=== PATIENT | male | born 1990 | race African-American/Black ===

== ENCOUNTER 2020-11-16 04:41 | Inpatient (IN) ==
[2020-11-16] MEDS ORDERED: ONDANSETRON 4 MG/2 ML VIAL ONE (04:56)
[2020-11-16] MEDS ORDERED: ONDANSETRON 4 MG/2 ML VIAL IV ONE (04:56)
[2020-11-16 05:01] LABS: Basophils # 0.1 10*3/uL (0.0-0.2); Basophils % 0.6 % (0.0-0.8); Eosinophils # 0.1 10*3/uL (0.0-0.87); Eosinophils % 1.2 % (0.00-10.9); Hematocrit 43.8 VOL% (42.0-52.0); Immature Granulocytes % 1.2 %; Immature Granulocytes Absolute 0.14 #; Lymphocytes # 4.4 10*3/uL (1.4-4.0); Lymphocytes % 36.4 % (21.2-54.2); Mean Corpuscular Volume 90.7 FL (87-102); Mean Platelet Volume 9.5 FL (9.6-12.0); Monocytes % 3.5 % (1.7-12.7); Neutrophils % 57.1 % (38.7-73.9); Platelet Count 329 T/CUMM (130-400); Red Blood Count 4.83 MC/CUMM (3.8-5.5); Red Cell Distribution Width 13.9 % (9.3-17.3); White Blood Count 12.2 T/CUMM (4-12)
[2020-11-16 05:18] LABS: Platelet Estimate Adequate
[2020-11-16 05:18] LABS: Alanine Aminotransferase 35 U/L (16-61); Albumin 3.8 G/DL (3.4-5.0); Alkaline Phosphatase 86 U/L (45-117); Amylase 63 U/L (25-115); Aspartate Amino Transferase 47 U/L (0-37); Bilirubin,Total < 0.39 MG/DL (0.2-1.0); Blood Urea Nitrogen 10 MG/DL (7-18); Calcium 7.6 MG/DL (8.5-10.1); Carbon Dioxide 26 MMOL/L (21-32); Estimated Glom Filtration Rate 90 ML/MIN; Glucose 103 MG/DL (74-106); Osmolality,Calculated 279.3 MOS/KG (273-304); Potassium 2.8 MMOL/L (3.5-5.1); Sodium 141 MMOL/L (136-145); Total Protein 7.3 G/DL (6.4-8.2)
[2020-11-16] MEDS ORDERED: TISSUE ADHESIVE 1 EACH APPLICATOR TOP ONE ×2 (05:36)
[2020-11-16] MEDS ORDERED: MORPHINE 4 MG/1 ML VIAL ONE (05:42)
[2020-11-16] MEDS ORDERED: MORPHINE 4 MG/1 ML VIAL IV STA (05:43)
[2020-11-16] MEDS ORDERED: ONDANSETRON 4 MG/2 ML VIAL IV STA (05:43)
[2020-11-16] MEDS ORDERED: LIDOCAINE 1%/EPI INJ 20 ML VIAL ONE (05:55)
[2020-11-16] MEDS ORDERED: ONDANSETRON 4 MG/2 ML VIAL IV PRN (06:07)
[2020-11-16] MEDS: LACTATED RINGERS 1,000 ML IV SCH ×2 (06:45→16:13)
[2020-11-16 07:35] LABS: INR 1.8; PT Patient Result 18.8 SECS (10.5-12.0)
[2020-11-16] MEDS: HYDROmorphone 2 MG/1 ML VIAL IV PRN ×3 (08:35→16:56)
[2020-11-16] MEDS: POTASSIUM CHLORIDE RIDER 10 MEQ in PREMIX 1 EACH IV PRN ×5 (10:00→14:04)
[2020-11-16] MEDS: MORPHINE 4 MG/1 ML VIAL IV PRN ×2 (20:57→23:20)
[2020-11-17] LABS: Bilirubin,Urine Negative (Negative); Blood, Urine Small mg/dL (Negative); Glucose,Urine (UA) Negative (Negative); Ketones,Urine 5 mg/dL (Negative); Mucus,Urine Occasional /LPF (Occasional); Nitrite,Urine Negative (Negative); Protein,Urine 30 MG/DL; Squamous Epithelial Cell,Urine Occasional /HPF (0-10); Urine Appearance CLEAR (Clear); Urine Color Yellow (Yellow); Urine Specific Gravity 1.024 (1.001-1.035); Urine Urobilinogen < 2.0 EU/DL (0.2-1.0)
[2020-11-17 00:05] LABS: Barbiturates Screen,Urine Negative (Negative); Benzodiazepines Screen,Urine Negative (Negative); Cannabinoid Screen,Urine Negative (Negative); Opiate Screen,Urine Positive (Negative); Phencyclidine Screen,Urine Negative (Negative)
[2020-11-17] MEDS: LACTATED RINGERS 1,000 ML IV SCH ×5 (00:19→21:52)
[2020-11-17] MEDS: MORPHINE 4 MG/1 ML VIAL IV PRN (03:30)
[2020-11-17] MEDS ORDERED: NALOXONE 0.4 MG/ML VIAL IV PRN (03:45)
[2020-11-17] MEDS ORDERED: HYDROmorphone PCA 30 MG/30 ML SYRINGE IV SCH (04:00)
[2020-11-17 04:14] LABS: ABG Base Excess 2.3 MMOL/L (-2.5-2.5); ABG HCO3 28.6 MMOL/L (20-26); ABG Oxygen Saturation 98.4 % (95-100); ABG PCO2 50.9 MM HG (35-48); ABG PH 7.367 (7.35-7.45); ABG PO2 118.6 MM HG (80-95); ABG TCO2 30.1 MMOL/L (23-27)
[2020-11-17 05:56] LABS: Basophils % 0.4 % (0.0-0.8); Eosinophils % 0.5 % (0.00-10.9); Hematocrit 40.8 VOL% (42.0-52.0); Immature Granulocytes % 0.4 %; Immature Granulocytes Absolute 0.03 #; Lymphocytes # 1.1 10*3/uL (1.4-4.0); Lymphocytes % 13.6 % (21.2-54.2); Mean Corpuscular HGB Conc 31.9 GM/DL (32-36); Mean Corpuscular Volume 91.9 FL (87-102); Mean Platelet Volume 9.9 FL (9.6-12.0); Monocytes % 4.9 % (1.7-12.7); Neutrophils % 80.2 % (38.7-73.9); Platelet Count 256 T/CUMM (130-400); Red Blood Count 4.44 MC/CUMM (3.8-5.5); Red Cell Distribution Width 14.3 % (9.3-17.3); White Blood Count 8.4 T/CUMM (4-12)
[2020-11-17 06:15] LABS: Calcium 8.9 MG/DL (8.5-10.1); Osmolality,Calculated 272.8 MOS/KG (273-304); Potassium 4.2 MMOL/L (3.5-5.1)
[2020-11-17] MEDS ORDERED: ALBUTEROL/IPRATROPIUM 3 ML NEB RESP TX PRN (08:49)
[2020-11-17 11:21] LABS: INR 0.9; PT Patient Result 10.5 SECS (10.5-12.0); Partial Thromboplastin Time 30.5 SECS (23.9-33.8)
[2020-11-17] MEDS ORDERED: LORazepam 2 MG/1 ML VIAL IV PRN (13:18)
[2020-11-17] MEDS ORDERED: LACTATED RINGERS 1,000 ML IV ONE (13:21)
[2020-11-17] MEDS ORDERED: SODIUM CHLORIDE 0.9% EPIDURAL SCH (14:30)
[2020-11-17] MEDS ORDERED: ROPIVACAINE 0.5% EPIDURAL SCH (14:30)
[2020-11-17] MEDS ORDERED: FENTANYL EPIDURAL SCH (14:30)
[2020-11-17] MEDS: HYDROmorphone PCA 30 MG/30 ML SYRINGE IV SCH (15:54)
[2020-11-17] MEDS: THIAMINE INJ 100 MG, FOLIC ACID INJ 1 MG, MULTIVITAMIN INJ 10 ML in SODIUM CHLORIDE 0.9... IV SCH (16:20)
[2020-11-17] MEDS: ALBUTEROL/IPRATROPIUM 3 ML NEB RESP TX SCH (20:02)
[2020-11-18] MEDS: ALBUTEROL/IPRATROPIUM 3 ML NEB RESP TX SCH ×4 (00:20→19:24)
[2020-11-18] MEDS: LACTATED RINGERS 1,000 ML IV SCH ×2 (06:10→19:45)
[2020-11-18] MEDS ORDERED: LACTATED RINGERS 1,000 ML IV ONE (07:12)
[2020-11-18 07:53] LABS: ABG Base Excess 5.7 MMOL/L (-2.5-2.5); ABG HCO3 29.5 MMOL/L (20-26); ABG PCO2 60.6 MM HG (35-48); ABG PH 7.347 (7.35-7.45); ABG PO2 75.4 MM HG (80-95); ABG TCO2 29.8 MMOL/L (23-27); Allen Test Positive
[2020-11-18 10:25] LABS: ABG Base Excess 7.4 MMOL/L (-2.5-2.5); ABG HCO3 31.1 MMOL/L (20-26); ABG Oxygen Saturation 95.3 % (95-100); ABG PCO2 56.1 MM HG (35-48); ABG PH 7.392 (7.35-7.45); ABG PO2 73.6 MM HG (80-95); ABG TCO2 30.2 MMOL/L (23-27); Allen Test Positive
[2020-11-18] MEDS: ROPIVACAINE 0.2% 100 ML EPIDURAL SCH ×3 (11:21→21:13)
[2020-11-18] MEDS: THIAMINE INJ 100 MG, FOLIC ACID INJ 1 MG, MULTIVITAMIN INJ 10 ML in SODIUM CHLORIDE 0.9... IV SCH ×2 (13:04→13:53)
[2020-11-18] MEDS ORDERED: FUROSEMIDE 40 MG/4 ML VIAL IV ONE (14:29)
[2020-11-18] MEDS: HYDROmorphone PCA 30 MG/30 ML SYRINGE IV SCH (18:42)
[2020-11-19] MEDS: ALBUTEROL/IPRATROPIUM 3 ML NEB RESP TX SCH ×4 (00:23→20:03)
[2020-11-19 04:41] LABS: ABG Base Excess 6.6 MMOL/L (-2.5-2.5); ABG HCO3 31.9 MMOL/L (20-26); ABG Oxygen Saturation 95.9 % (95-100); ABG PCO2 48.9 MM HG (35-48); ABG PH 7.433 (7.35-7.45); ABG PO2 80.5 MM HG (80-95); ABG TCO2 33.4 MMOL/L (23-27)
[2020-11-19 04:42] LABS: Allen Test Positive
[2020-11-19] MEDS: ROPIVACAINE 0.2% 100 ML EPIDURAL SCH (07:18)
[2020-11-19] MEDS ORDERED: POLYETHYLENE GLYCOL POWDER 17 GM PACK PO PRN (07:51)
[2020-11-19] MEDS: DOCUSATE SODIUM 100 MG CAPSULE PO SCH ×2 (09:45→21:42)
[2020-11-19] MEDS: THIAMINE INJ 100 MG, FOLIC ACID INJ 1 MG, MULTIVITAMIN INJ 10 ML in SODIUM CHLORIDE 0.9... IV SCH (18:08)
[2020-11-19] MEDS: HYDROmorphone PCA 30 MG/30 ML SYRINGE IV SCH (18:08)
[2020-11-19] MEDS: LACTATED RINGERS 1,000 ML IV SCH (18:09)
[2020-11-20] MEDS: ALBUTEROL/IPRATROPIUM 3 ML NEB RESP TX SCH ×4 (02:01→19:42)
[2020-11-20 03:59] LABS: ABG Base Excess 3.8 MMOL/L (-2.5-2.5); ABG HCO3 29.1 MMOL/L (20-26); ABG Oxygen Saturation 97.6 % (95-100); ABG PCO2 46.9 MM HG (35-48); ABG PH 7.411 (7.35-7.45); ABG PO2 97.1 MM HG (80-95); ABG TCO2 30.6 MMOL/L (23-27); Allen Test Positive
[2020-11-20] MEDS: DOCUSATE SODIUM 100 MG CAPSULE PO SCH ×2 (10:37→20:45)
[2020-11-20] MEDS: HYDROmorphone PCA 30 MG/30 ML SYRINGE IV SCH ×3 (11:51→16:16)
[2020-11-20] MEDS ORDERED: BUPIVACAINE 0.5% 50 ML VIAL MISC INJ ONE ×2 (16:21→17:00)
[2020-11-20] MEDS ORDERED: TRIAMCINOLONE ACETONIDE 40 MG/1 ML VIAL IM ONE (17:30)
[2020-11-20] MEDS: GABAPENTIN 300 MG CAPSULE PO SCH (20:45)
[2020-11-21] MEDS: ALBUTEROL/IPRATROPIUM 3 ML NEB RESP TX SCH ×4 (00:58→19:48)
[2020-11-21 04:33] LABS: ABG Base Excess 3.5 MMOL/L (-2.5-2.5); ABG HCO3 27.4 MMOL/L (20-26); ABG Oxygen Saturation 91.7 % (95-100); ABG PCO2 40.9 MM HG (35-48); ABG PH 7.442 (7.35-7.45); ABG PO2 62.9 MM HG (80-95); ABG TCO2 24.1 MMOL/L (23-27); Allen Test Positive; Pt O2 Delivery Device Room Air
[2020-11-21] MEDS: GABAPENTIN 300 MG CAPSULE PO SCH ×3 (10:03→22:06)
[2020-11-21] MEDS: DOCUSATE SODIUM 100 MG CAPSULE PO SCH ×2 (10:03→22:06)
[2020-11-21] MEDS: LIDOCAINE 5% PATCH TRANSDERM SCH (10:05)
[2020-11-22] MEDS: ALBUTEROL/IPRATROPIUM 3 ML NEB RESP TX SCH ×4 (00:29→19:50)
[2020-11-22] MEDS: LIDOCAINE 5% PATCH TRANSDERM SCH (09:06)
[2020-11-22] MEDS: DOCUSATE SODIUM 100 MG CAPSULE PO SCH ×2 (09:06→21:07)
[2020-11-22] MEDS: GABAPENTIN 300 MG CAPSULE PO SCH ×3 (09:06→21:07)
[2020-11-22] MEDS: HYDROmorphone PCA 30 MG/30 ML SYRINGE IV SCH (09:10)
[2020-11-23] MEDS: ALBUTEROL/IPRATROPIUM 3 ML NEB RESP TX SCH ×4 (00:34→19:05)
[2020-11-23] MEDS: DOCUSATE SODIUM 100 MG CAPSULE PO SCH ×2 (09:19→20:36)
[2020-11-23] MEDS: GABAPENTIN 300 MG CAPSULE PO SCH ×3 (09:19→20:36)
[2020-11-23] MEDS: LIDOCAINE 5% PATCH TRANSDERM SCH (09:20)
[2020-11-23] MEDS: HYDROmorphone PCA 30 MG/30 ML SYRINGE IV SCH (12:34)
[2020-11-24] MEDS: ALBUTEROL/IPRATROPIUM 3 ML NEB RESP TX SCH ×2 (00:17→08:10)
[2020-11-24] MEDS: DOCUSATE SODIUM 100 MG CAPSULE PO SCH (08:31)
[2020-11-24] MEDS: GABAPENTIN 300 MG CAPSULE PO SCH ×2 (08:31→15:21)
[2020-11-24] MEDS: LIDOCAINE 5% PATCH TRANSDERM SCH (08:34)
[2020-11-24] MEDS: HYDROmorphone PCA 30 MG/30 ML SYRINGE IV SCH (11:10)
[2020-11-24] MEDS ORDERED: oxyCODONE/ACETAMINOPHEN 5-325 MG TABLET PO PRN (11:42)
[2020-11-24 12:02] VITALS: BP 135/76
== END 2020-11-24 15:33 | disposition home or self-care (01) | DRG 199 ==
LOC: N.ED 04:41 → N.EDINP 06:07 → N.ICU 06:26 → N.TELES 11-21 11:29
PROVIDERS: ADMIT Surgery; ATTEND Surgery